=== PATIENT | female | born 1990 | race Caucasian/White ===

== ENCOUNTER → 2017-09-19 16:46 | Outpatient (CLI) | payer MEDICAID, SELFPAY ==
[2017-09-19 18:42] LABS: BUN 13 mg/dL (7-18); Creatinine, Serum 0.84 mg/dL (0.55-1.02); EST Glomerular Filtration Rate 86 mL/min (>60); Est Glom Filt Rate - Afr Amer 104 mL/min (>60)
== END ==
PROVIDERS: Family Provider Family Medicine; PCP Family Medicine
DX: R51 Headache (principal)
CPT/HCPCS: 36415; 82565; 84520

== ENCOUNTER → 2017-09-29 10:44 | Outpatient (CLI) | payer MEDICAID, SELFPAY ==
--- NOTE | 2017-09-29 10:44 | DT_ITS ---
This patient was seen during an EMR downtime September 22, 2017 - September 29, 2017. This patient may have a combination of paper and electronic documentation or all paper documentation. All documentation is viewable within the e-chart portion of [facility] for each patient visit.
--- NOTE | 2017-09-29 11:44 | MRI_ITS ---
STUDY: MRI BRAIN WITH AND WITHOUT CONTRAST REASON FOR EXAM: Female, 27 years old. Worsening right-sided headache TECHNIQUE: Standardized multiplanar fat and water weighted pulse sequences were obtained. 10 ml of Gadavist contrast material was administered intravenously for the contrast portion of the examination. COMPARISON: None. FINDINGS: Normal size of the ventricles and extra-axial spaces for the patient's age. Normal white matter tracts of the supratentorial brain. Normal bilateral basal ganglia. Normal thalami. There is no extra-axial fluid accumulation. Normal flow voids within the major intracranial circulation suggesting patency by spin echo criteria. Normal venous enhancement. There is no enhancing intra-axial or extra-axial abnormality. Normal sella turcica, pituitary gland, infundibular stalk, optic chiasm and hypothalamus. Normal tectal plate and pineal gland. Normal midbrain, navin and medulla. Normal cerebellum. Normal basal cisterns. Normal bilateral temporal bones. Normal bilateral internal auditory canals. No demonstrated orbital abnormality, within the constraints of a routine brain study. Right maxillary sinus disease. Normal calvarium and skull base. Normal visualized soft tissue structures. Normal visualized upper cervical spine. MRI/Brain W/WO Contrast IMPRESSION: Normal unenhanced and enhanced MRI of the brain. Electronically Signed: Jose Mcfadden MD at 1:59 EDT Tel , Service support ,
== END ==
PROVIDERS: Family Provider Family Medicine; PCP Family Medicine
DX: R51 Headache (principal)
CPT/HCPCS: 70553; A9585

== ENCOUNTER 2018-02-02 15:03 | Emergency (ER) | payer MEDICAID, SELFPAY ==
[2018-02-02 15:05] VITALS: BP 132/85; PULSE 82; RESP 16; TEMP 36.6; O2SAT 100; BMI 39.3
--- NOTE | 2018-02-02 15:51 | ED.DCSUM_ITS ---
- ER Visit Summary Date of Service: 02/02/18 Chief Complaint: Supple infected wound History of Present Illness: The patient is a 27 F who had laparoscopic surgery to remove an ovarian cyst on January 22 at [facility]. Patient states when they went in for the surgery the cyst had already ruptured. They did find that she had endometriosis and did remove some lesions with that. She was seen in the office for re-eval on January 27 and had minimal redness to the surgical incision/laparoscopic sites with Steri-Strips intact at that time. Patient states Steri-Strips of now fallen off. She has noted increased redness to the surgical wounds of the past for 5 days. She had drainage from one surgical wo und on the right lower abdomen today. She denies fever or chills. Physical Examination: Vital signs are unremarkable. Patient is afebrile. Patient sitting upright in bed no acute distress. She is nontoxic appearing. Heart is regular rate and rhythm. Lung sounds are clear. Abdomen is soft with appropriate postop tenderness. She has 2 healing laparoscopic wounds with mild surrounding erythema. There is no palpable abscess. There is no drainage at this time. Test Results: [] Emergency Department Course and Treatment: With the patient's reported drainage from the wound she will be treated with a course of Keflex, first dose given here. She is to follow-up with access point. Treatment Plan: [] Disposition: Discharge Impression: Postop wound infection This note was generated with [employer]IN dictation software. It may contain incorrect words, spelling, and punctuation that were not noted in review of the chart prior to signing ED Disposition - Plan for ED Patient: Chief Complaint: Wound Referrals: Luke Sanchez III, MD [Primary Care Provider] -
--- NOTE | 2018-02-02 15:51 | ED.DEP ---
ED Disposition - Plan for ED Patient: Disposition: Home or Assisted Living Chief Complaint: Wound Instructions: ED Wound Infec After Surgery Prescriptions: Cephalexin [Keflex] 500 mg PO Q6 #40 capsule Referrals: Luke Sanchez III, MD [Primary Care Provider] - As Needed Additional Instructions: Follow-up with [facility].
[2018-02-02] MEDS: Cephalexin 250 MG Capsule 500 MG PO (16:04)
--- NOTE | 2018-02-02 16:08 | ED.DEP ---
ED Disposition - Plan for ED Patient: Disposition: Home or Assisted Living Chief Complaint: Wound Instructions: ED Wound Infec After Surgery Prescriptions: Cephalexin [Keflex] 500 mg PO Q6 #40 capsule Naproxen [Naprosyn] 500 mg PO BID PRN PRN #20 tab PRN Reason: Pain Referrals: Luke Sanchez III, MD [Primary Care Provider] - As Needed Additional Instructions: Follow-up with [facility].
[2018-02-02 16:16] VITALS: PULSE 82; RESP 22; O2SAT 98
--- NOTE | 2018-02-02 16:17 | ED.RN ---
THIS NURSE REVIEWED D/C INSTRUCTIONS WITH PT. PT VERBALIZED UNDERSTANDING OF INSTRUCTIONS. PT TEARFUL. REQUESTING PAIN MEDICATION. PT OFFERED NAPROXEN HERE AND PRESCRIPTION. PT REFUSED. PT DENIES FURTHER NEEDS OR QUESTIONS AT THIS TIME.
== END 2018-02-02 16:19 | disposition home or self-care (01) ==
PROVIDERS: Emergency Provider Emergency Medicine; Family Provider Family Medicine; PCP Family Medicine
DX: T81.49XA Infection following a procedure, other surgical site, initial encounter (principal); N80.9 Endometriosis, unspecified; M06.9 Rheumatoid arthritis, unspecified
CPT/HCPCS: 99283

== ENCOUNTER 2018-06-05 15:39 | Emergency (ER) | payer MEDICAID, SELFPAY ==
[2018-06-05 15:43] VITALS: BP 122/93; PULSE 95; RESP 18; TEMP 36.5; O2SAT 99; BMI 38.7
--- NOTE | 2018-06-05 16:25 | CT_ITS ---
STUDY: CT ABDOMEN AND PELVIS WITH CONTRAST REASON FOR EXAM: Female, 28 years old. Postop hysterectomy x1 week RADIATION DOSAGE (If Supplied By Facility): CTDIvol = ( 17.99 ) mGy, DLP = ( 1219.41 ) mGycm TECHNIQUE: Transaxial images were obtained from the dome of the diaphragm to the symphysis pubis without oral contrast. Isovue 300 100ML IV was administered. Sagittal and coronal images were reconstructed. Individualized dose optimization techniques were used for this CT. COMPARISON: None. FINDINGS: The visualized lung bases are unremarkable. The visualized portions of the heart are within normal limits. Normal liver. Gallstones noted without gallbladder wall thickening. Normal spleen. Normal pancreas. Normal bilateral adrenal glands. Normal right kidney. Normal left kidney. Normal visualized stomach. Normal small intestine. Normal colon. The appendix is visualized and appears normal. Normal abdominal aorta. Normal inferior vena cava. Normal retroperitoneum. Normal urinary bladder. Small amount of free fluid in the pelvis. Fat-containing umbilical hernia with mild induration and adjacent subcutaneous gas. Normal osseous structures. CT/Abdomen/Pelvis W IV Cont ONLY IMPRESSION: Cholelithiasis Induration and focal gas umbilicus. Small amount of free fluid in the pelvis. Electronically Signed: Man Cervantes MD at 18:42 EST , Service support ,
--- NOTE | 2018-06-05 16:47 | ED.VISSUMM ---
- ER Visit Summary Date of Service: 06/05/18 Chief Complaint: Abdominal pain History of Present Illness: The patient is a 28 F [presents to the emergency department abdominal pain. The patient had a laparoscopic hysterectomy done at [facility] on . She states that she had been doing well with her recovery. She states Friday, she rolled over in bed and felt like something popped. Since then, she is had intermittent pain especially with motion. She is been mildly nauseated without vomiting. She denies any diarrhea. She is been moving her bowels without issue. She denies any urinary symptoms. Patient is otherwise healthy.] Physical Examination: Vital signs reviewed General: Well-nourished, well-developed Head: Normocephalic, atraumatic Eyes: Pupils equal and reactive, extraocular muscles intact Neck, supple, no lymphadenopathy Heart: Regular rate and rhythm Respiratory: No distress, clear bilaterally Abdomen: Soft, nontender, nondistended, no peritoneal signs, incisions are clean dry and intact. There is no evidence of hernia. There is no dehiscence. Back: Nontender Extremities: Nontender, no edema, no cords Skin: Normal color no rash Neuro: Alert and oriented, no focal or lateralizing deficits Test Results: [] Emergency Department Course and Treatment: The patient presents with abdominal pain. Her incisions are clean, dry, and intact. IV was established. She was given analgesics and antiemetics and still had some mild pain. Screening labs are unremarkable. CT does show what appears to be an incisional hernia with some intraperitoneal fat through the umbilical incision. I discussed the patient with DIRECTOR OF [employer]ATFORMS, Dr. Ruiz, and [facility]. Given her new incisional hernia with dehiscence, he does want to evaluate her at [facility]. He wants to hold on antibiotics and I feel this is reasonable. The patient's pain was readdressed and she will be transferred to [facility] for [employer] evaluation. Treatment Plan: [] Disposition: Transfer Impression: 1. Postoperative wound dehiscence with incisional hernia This note was generated with [employer] dictation software. It may contain incorrect words, spelling, and punctuation that were not noted in review of the chart prior to signing ED Disposition - Plan for ED Patient: Referrals: Luke Sanchez III, MD [Primary Care Provider] -
[2018-06-05 17:36] LABS: Absolute Lymphocyte Count 1.59 X10^3/ul (0.83-4.51); Absolute Neutrophil Count 5.8 X10^3/uL (2.0-7.7); Basophil# 0.04 X10^3/uL; Basophil% 0.5 % (0-1); Eosinophil# 0.45 X10^3/uL; Eosinophils% 5.2 % (0-5); Hematocrit 37.3 % (37-47); Hemoglobin 11.9 g/dl (12.0-15.0); Lymphocyte # 1.59 X10^3/ul (4.0); Lymphocyte % 18.5 % (19-41); Mean Corp Hgb Conc 31.9 g/gl (32-36); Mean Corpuscular Hgb 28.3 pg (27.0-32.0); Mean Corpuscular Volume 88.6 fL (81-99); Mean Platelet Vol. 9.4 fl (6.2-12.0); Monocyte# 0.71 X10^3/uL; Monocyte% 8.3 % (0-10); Neutrophil # 5.78 X10^3/uL (2.7-7.7); Neutrophil % 67.3 % (47-70); Platelet Count 265 K/mm3 (150-450); RBC Distribution Width SD 42.2 fl (35.1-43.9); Red Blood Count 4.21 M/mm3 (4.2-5.4); White Blood Count 8.6 K/mm3 (4.4-11.0)
[2018-06-05 17:38] LABS: POSITIVE COUNT NO; POSITIVE DIFFERENTIAL NO; POSITIVE MORPHOLOGY NO
[2018-06-05] MEDS: 0.9% Normal Saline 1,000 ML 1000 ML IV (17:46)
[2018-06-05] MEDS: Ondansetron 4 MG/2 ML Vial IV (17:46)
[2018-06-05] MEDS: Morphine 4 MG/ML Syringe IV (17:47)
[2018-06-05 17:59] LABS: Anion Gap 7 (5-15); BUN 9 mg/dL (7-18); BUN/Creat Ratio 8.5 RATIO (10-20); Calcium,Total 8.4 mg/dL (8.5-10.1); Chloride 106 mmol/L (98-107); Creatinine, Serum 1.06 mg/dL (0.55-1.02); EST Glomerular Filtration Rate 66 mL/min (>60); Est Glom Filt Rate - Afr Amer 79 mL/min (>60); Estimated Creatinine Clearance 82.58 ml/min; Glucose 80 mg/dL (74-106); Potassium 3.8 mmol/L (3.5-5.1); Sodium Level 137 mmol/L (136-145)
[2018-06-05 18:07] VITALS: BP 143/95; PULSE 80; RESP 16; TEMP 36.6; O2SAT 100
[2018-06-05 18:08] VITALS: BP 143/95; PULSE 80; RESP 16; TEMP 36.6; O2SAT 100
[2018-06-05 19:23] VITALS: BP 143/94; PULSE 86; RESP 16; TEMP 37; O2SAT 100
[2018-06-05] MEDS: HYDROmorphone 1 MG/ML Syringe IV (19:30)
[2018-06-05 19:41] VITALS: BP 143/94; PULSE 86; RESP 16; TEMP 37; O2SAT 100
== END 2018-06-05 20:06 | disposition short-term general hospital (02) ==
LOC: ED 16:28
PROVIDERS: Emergency Provider Emergency Medicine; Family Provider Family Medicine; PCP Family Medicine
DX: T81.31XA Disruption of external operation (surgical) wound, not elsewhere classified, initial encounter (principal); K43.2 Incisional hernia without obstruction or gangrene
CPT/HCPCS: 74177; 80048; 85025; 96361; 96374; 96375; 99285; J7030; Q9967; A4216; J2405